=== PATIENT | female | born 1990 | race Two or more races ===

== ENCOUNTER 2020-01-31 17:16 | Emergency (ER) | payer SELFPAY ==
[~2020-01-31] VITALS: Ht 152.4 cm; Wt 60.0 kg
[2020-01-31] MEDS ORDERED: GABA300C10 PO (17:33)
[2020-01-31] MEDS ORDERED: HYDR-3342 PO (17:34)
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
--- NOTE | 2020-01-31 18:18 | NUR ---
PT KEEPS STATING, "DONT LEAVE ME". INCREASE EMOTIONAL SUPPORT GIVEN. SITTER AT BS
--- NOTE | 2020-01-31 19:00 | NUR ---
REPORT FROM TOD RN, ASSUMING CARE OF PT AT THIS TIME. PSYCH PUBLIC HEALTH TECHNICIAN AT BEDSIDE, MEDS TO BE GIVEN AFTER RESULT
[2020-01-31 19:03] LABS: BASOPHILS # (AUTO) 0.08 x10^3/uL (0-0.1); BASOPHILS % (AUTO) 1 % (0-1); EOSINOPHILS % (AUTO) 0 % (1-7); LYMPHOCYTES # (AUTO) 1.25 x10^3/uL (1-3.4); LYMPHOCYTES % (AUTO) 12 % (22-44); MD NO; MEAN CORPUSCULAR HEMOGLOBIN 27.8 pg (27.0-34.8); MEAN CORPUSCULAR HGB CONC 33.6 g/dL (32.4-35.8); MEAN CORPUSCULAR VOLUME 82.8 fL (80-100); MEAN PLATELET VOLUME 9.4 fL (7.4-10.4); MONOCYTES # (AUTO) 0.74 x10^3/uL (0.2-0.8); MONOCYTES % (AUTO) 7 % (2-9); NEUTROPHILS # (AUTO) 8.09 x10^3/uL (1.8-6.8); NEUTROPHILS % (AUTO) 80 % (42-75); PLATELET COUNT 389 x10^3/uL (130-400); RED BLOOD COUNT 4.34 x10^6/uL (3.82-5.3); RED CELL DISTRIBUTION WIDTH 16.2 % (9.6-15.2)
[2020-01-31 19:15] LABS: ALANINE AMINOTRANSFERASE 22 U/L (12-78); ALBUMIN 4.2 g/dL (3.4-5.0); ANION GAP 10 mmol/L (5-15); CALCIUM 8.7 mg/dL (8.5-10.1); CHLORIDE 106 mmol/L (98-107); CREATININE 0.91 mg/dL (0.55-1.02)
[2020-01-31 19:20] LABS: ALKALINE PHOSPHATASE 64 U/L (45-117); BILIRUBIN,TOTAL 0.6 mg/dL (0.2-1.0); SALICYLATE LEVEL < 1.7 mg/dL (2.8-20.0)
--- NOTE | 2020-01-31 19:29 | NUR ---
PT PROVIDED WITH SANDWICH AND WATER REQUESTED SITTER REMAINS IN PLACE
[2020-01-31] MEDS ORDERED: LORazepam 0.5MG TABLET ONE (19:34)
[2020-01-31] MEDS: LORazepam 0.5MG TABLET PO PRN (19:36)
--- NOTE | 2020-01-31 19:38 | NUR ---
PHARMACY REQ SENT FOR MEDS, PT MEDICATED PER Jan, WITH STEADY GAIT TO CALL SISTER WITH SITTER (OK PER MARCELINO SWITCH REPAIRER)
[2020-01-31 19:46] LABS: AMPHETAMINE SCREEN, URINE Positive (Negative); BARBITURATE SCREEN, URINE Negative (Negative); BENZODIAZEPINE SCREEN, URINE Negative (Negative); CANNABINOID SCREEN, URINE Positive (Negative); COCAINE SCREEN, URINE Negative (Negative); METHADONE SCREEN, URINE Negative (Negative); OPIATE SCREEN, URINE Negative (Negative)
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
[2020-01-31] MEDS ORDERED: ARIPIPRAZOLE 10 MG TABLET ONE (20:15)
[2020-01-31] MEDS: ARIPIPRAZOLE 10 MG TABLET PO SCH (20:24)
--- NOTE | 2020-01-31 20:36 | NUR ---
HOSPITAL BED REQUESTED
[2020-01-31] MEDS ORDERED: HALOPERIDOL 5 MG/ML ONE (21:18)
--- NOTE | 2020-01-31 21:22 | NUR ---
PT NOW SLEEPING SITTER REMAINS NEARBY FOR SAFETY.
[2020-01-31] MEDS ORDERED: HALOPERIDOL 5 MG/ML IM PRN (21:30)
--- NOTE | 2020-01-31 22:20 | NUR ---
PT RESTING ON HOSPITAL BED OCASIONALLY SNACKING ON SANDWICH PREVIOUSLY PROVIDED. SITTER REMAINS FOR SAFETY AND MONITORING
--- NOTE | 2020-01-31 23:44 | NUR ---
PT CONTINUES TO REST ON HOSPITAL BED WITH SITTER CLOSE BY.
--- NOTE | 2020-02-01 01:33 | NUR ---
RESTING QUIETLY, NAD AT THIS TIME, SITTER OUTSIDE ROOM FOR PT SAFETY
--- NOTE | 2020-02-01 02:20 | NUR ---
PT RESTING ON HOSPITAL BED OCCASIONALLY WAKING TO ENSURE SITTER HAS NOT LEFT, PT REMAINS CALM
--- NOTE | 2020-02-01 03:15 | NUR ---
NPT RESTING STILL NADN
--- NOTE | 2020-02-01 04:11 | NUR ---
PT RESTING ON HOSPITAL BED, NADN, NO NEEDS AT THIS TIME. SITTER REMAINS IN DOORWAY FOR SAFETY AND CHECKS
--- NOTE | 2020-02-01 05:08 | NUR ---
DIET BRETT ORDERED, PT CONTINUES TO SLEEP SITTER IN DOORWAY FOR SAFETY
[2020-02-01] MEDS ORDERED: LORazepam 0.5MG TABLET ONE (05:31)
[2020-02-01] MEDS: LORazepam 0.5MG TABLET PO PRN (05:32)
--- NOTE | 2020-02-01 05:35 | NUR ---
PT BECOMING ANXIOUS AGAIN REQ MEDICATION, PT MEDICATED PER ABRAHAM SAHU
[2020-02-01 06:39] VITALS: BP 126/86
--- NOTE | 2020-02-01 07:00 | NUR ---
REPORT RECIEVED FROM EN RN, ASSUMED CARE OF PT. PT RESTING ON HOSPITAL BED AT THIS TIME, VISIBLE CHEST RISE AND FALL NOTED. SI PRECAUTIONS OBSERVED
[2020-02-01] MEDS ORDERED: ARIPIPRAZOLE 10 MG TABLET ONE (07:19)
[2020-02-01] MEDS: ARIPIPRAZOLE 10 MG TABLET PO SCH (08:17)
--- NOTE | 2020-02-01 08:20 | NUR ---
PT MEDICATED PER MAR. PT REFUSING MEAL TRAY AT THIS TIME.
--- NOTE | 2020-02-01 09:46 | NUR ---
Patients psych packet faxed to [facility] as patient is self pay. Conformation recieved.
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
[2020-02-01] MEDS ORDERED: GABAPENTIN 300 MG CAPSULE PO ONE (10:30)
== END 2020-02-01 12:07 | disposition home or self-care (01) ==
LOC: ED 21:14
DX: F25.0 Schizoaffective disorder, bipolar type (principal); F17.200 Nicotine dependence, unspecified, uncomplicated; F31.9 Bipolar disorder, unspecified
CPT/HCPCS: 36415; 80053; 80307; 84703; 85025; 99284; Q0177